=== PATIENT | female | born 1985 | race African-American/Black ===

== ENCOUNTER 2024-12-23 16:34 | Emergency (ER) | payer SELFPAY ==
--- NOTE | 2024-12-23 17:42 | EDPHYS ---
Physician Documentation [facility] Name: Amadeo Mar Age: 39 yrs Sex: Female : 1985 Arrival Date: 12/23/2024 Time: 16:34 Bed 7 Private MD: ED Physician Amador Broderick HPI: 12/23 17:38 This 39 yrs old Black Female presents to ER via EMS with complaints of seizure like jj9 activity and head pain. 17:38 39-year-old female comes to the emergency department for evaluation. The patient jj9 reports she had a seizure-like activity while being arrested by police radio dispatcher. She was stopped but she was driving apparently erratically. She endorses using drugs and alcohol recently. She denies any problems and does not want any workup and it feels ready to go.. 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 Patient states that history is in her chart previously and that she has numerous issues and it would be difficult to tell . - Infectious Disease History:: Denies. CDIFF, C. Auris, ESBL, MRSA (w/in 1 year), VRE (w/in 1 year), TB, . - Social history:: Patient uses alcohol, Smoking status: Patient reports the use of cigarette tobacco products, unknown amount. ROS: 17:38 Constitutional: Negative for fever, chills, and weight loss, Eyes: Negative for injury, jj9 pain, redness, and discharge, ENT: Negative for injury, pain, and discharge, Neck: Negative for injury, pain, and swelling, Cardiovascular: Negative for chest pain, palpitations, and edema, Respiratory: Negative for shortness of breath, cough, wheezing, and pleuritic chest pain, Abdomen/GI: Negative for abdominal pain, nausea, vomiting, diarrhea, and constipation, Back: Negative for injury and pain, : Negative for injury, bleeding, discharge, and swelling, MS/Extremity: Negative for injury and deformity, Skin: Negative for injury, rash, and discoloration, Neuro: Negative for headache, weakness, numbness, tingling, and seizure, Psych: Negative for depression, anxiety, suicide ideation, homicidal ideation, and hallucinations, Allergy/Immunology: Negative for hives, rash, and allergies, Endocrine: Negative for neck swelling, polydipsia, polyuria, polyphagia, and marked weight changes, Hematologic/Lymphatic: Negative for swollen nodes, abnormal bleeding, and unusual bruising, Exam: 17:39 Constitutional: This is a well developed, well nourished patient who is awake, alert, jj9 and in no acute distress. Head/Face: Normocephalic, atraumatic. Eyes: Pupils equal round and reactive to light, extra-ocular motions intact. Lids and lashes normal. Conjunctiva and sclera are non-icteric and not injected. Cornea within normal limits. Periorbital areas with no swelling, redness, or edema. ENT: Nares patent. No nasal discharge, no septal abnormalities noted. Tympanic membranes are normal and external auditory canals are clear. Oropharynx with no redness, swelling, or masses, exudates, or evidence of obstruction, uvula midline. Mucous membranes moist. Neck: Trachea midline, no thyromegaly or masses palpated, and no cervical lymphadenopathy. Supple, full range of motion without nuchal rigidity, or vertebral point tenderness. No Meningismus. Chest/axilla: Normal chest wall appearance and motion. Nontender with no deformity. No lesions are appreciated. Cardiovascular: Regular rate and rhythm with a normal S1 and S2. No gallops, murmurs, or rubs. Normal PMI, no JVD. No pulse deficits. Respiratory: Lungs have equal breath sounds bilaterally, clear to auscultation and percussion. No rales, rhonchi or wheezes noted. No increased work of breathing, no retractions or nasal flaring. Abdomen/GI: Soft, non-tender, with normal bowel sounds. No distension or tympany. No guarding or rebound. No evidence of tenderness throughout. Back: No spinal tenderness. No costovertebral tenderness. Full range of motion. Skin: Warm, dry with normal turgor. Normal color with no rashes, no lesions, and no evidence of cellulitis. MS/ Extremity: Pulses equal, no cyanosis. Neurovascular intact. Full, normal range of motion. Neuro: Awake and alert, GCS 15, oriented to person, place, time, and situation. Cranial nerves II-XII grossly intact. Motor strength 5/5 in all extremities. Sensory grossly intact. Cerebellar exam normal. Normal gait. Psych: Awake, alert, with orientation to person, place and time. Behavior, mood, and affect are within normal limits. Vital Signs: 16:43 BP 134 / 84; Pulse 84; Resp 18; Pulse Ox 100% ; Pain 0/10; jp4 16:43 Pain Scale: Adult jp4 16:43 states that she is more sore and upset than in pain jp4 MDM: 16:43 Medical Screening Exam initiated jj9 17:39 Differential diagnosis: drug overdose, seizure, Electrolyte abnormalities, renal jj9 failure, etc.. 17:39 Refusal of service: The patient/guardian displays adequate decision making capability jj9 and despite a detailed discussion of alternatives, benefits, risks, and consequences refuses: all lab tests, all X-rays. ED course: The patient appears in no distress she remains hemodynamically stable. She refuses any further workup and feels ready to leave. 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 The patient will be discharged advised to follow-up with her PCP and return to the ED if worsening of symptoms.. 17:42 Data reviewed: vital signs, nurses notes. jj9 Administered Medications: No medications were administered Disposition: 17:41 Co-signature as Attending Physician, Amador Broderick MD. jj9 Disposition Summary: 12/23/24 17:41 Discharge Ordered Notes: Location: Home j9 Condition: Stable jj9 Problem: new jj9 Diagnosis - Other seizures jj9 Followup: jj9 - With: Private Physician - When: As needed - Reason: Discharge Instructions: - Discharge Summary Sheet jj9 - Seizure, Adult jj9 Forms: - Medication Reconciliation Form jj9 - Antibiotic Education jj9 - Prescription Opioid Use jj9 - Patient Portal Instructions jj9 - Leadership Thank You Letter jj9 Signatures: Jac Goldstein, RN RN Vaelrio Sawyer RN RN [email or web address] Amador Broderick MD MD jj9
--- NOTE | 2024-12-23 17:42 | ER ---
Nurse's Notes [facility] Name: Amadeo Mar Age: 39 yrs Sex: Female : 1985 Arrival Date: 12/23/2024 Time: 16:34 Bed 7 Private MD: Diagnosis: Other seizures Presentation: 12/23 16:43 Chief complaint: EMS states: Patient was detained by PD, and jerking like motions were jp4 noted in limbs. Patient states that she hit her head while being maneuvered by PD. 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 Coronavirus screen: Vaccine status: Patient reports having had a previously documented Covid positive illness. unknown At this time, the client does not indicate any symptoms associated with coronavirus-19. Ebola Screen: Patient negative for fever greater than or equal to 101.5 degrees Fahrenheit, and additional compatible Ebola Virus Disease symptoms Patient denies exposure to infectious person. Patient denies travel to an Ebola-affected area in the 21 days before illness onset. No symptoms or risks identified at this time. Initial Sepsis Screen: Does the patient meet any 2 criteria? No. Patient's initial sepsis screen is negative. Does the patient have a suspected source of infection? No. Patient's initial sepsis screen is negative. Risk Assessment: Do you want to hurt yourself or someone else? Patient reports no desire to harm self or others. 16:43 Method Of Arrival: EMS: [facility] 4 16:43 Acuity: KLAUS 4 jp4 17:34 Onset of symptoms is unknown. bp Triage Assessment: 16:47 General: Appears distressed, well developed, Behavior is flat, restless, patient upset jp4 due to events that happened [employer] WORKER HELPER with PD. Pain: Denies pain. Neuro: No deficits noted. Respiratory: No deficits noted. Airway is patent Trachea midline Respiratory effort is even, unlabored, Respiratory pattern is regular, symmetrical. Musculoskeletal: No deficits noted. CSO: 17:34 LMP N/A - Irregular menses, Not bp Historical: - Home Meds: 16:47 None [Active]; jp4 - PMHx: 16:46 drug abuse; Seizure; jp4 - PSHx: 16:47 Unable to Obtain; jp4 - Immunization history:: unknown. Patient states that history is in her chart previously and that she has numerous issues and it would be difficult to tell . - Infectious Disease History:: Denies. CDIFF, C. Auris, ESBL, MRSA (w/in 1 year), VRE (w/in 1 year), TB, . - Social history:: Patient uses alcohol, Smoking status: Patient reports the use of cigarette tobacco products, unknown amount. Screenin:49 Clinical [place] Withdrawal Assessment for Alcohol, revised (CIWA-Ar): jp4 Nausea/Vomitin - No nausea or vomiting Headache: 0 - Not present Paroxysmal Sweats: 0 - No sweats visible Anxiety: 0 - No anxiety, at ease Agitation: 0 - Normal actiivty Tremor: 0 - No tremor Auditory Disturbances: 0 - Not present Visual Disturbances: 0 - Not present Tactile Disturbances: 0 - None Orientation and Clouding of Sensorium: 0 - Oriented and can do serial additions Total Score: < [address] [facility] ED Fall Risk Assessment (Adult) History of falling in the last 3 months, including since admission No falls in past 3 months (0 pts) Confusion or Disorientation No (0 pts) Intoxicated or Sedated No (0 pts) Impaired Gait No (0 pts) Mobility Assist Device Used No (0 pt) Altered Elimination No (0 pt) Score/Fall Risk Level 0 - 2 = Low Risk. Abuse screen: Denies threats or abuse. Denies injuries from another. Nutritional screening: No deficits noted. Tuberculosis screening: No symptoms or risk factors identified. Assessment: 16:49 General: Patient is awake and alert, following commands. Talking on phone when jp4 attempting to get patient history. 16:51 Reassessment: PT DECLINING TREATMENT. bp 17:31 Reassessment: ERP AT B/S FOR PT EVAL. COMPLICATED BY PT PHONE USE. PT CONTINUES TO bp REFUSED TREATMENT AND ASKING STAFF TO GIVE HER A RIDE BACK TO FILION. PT AOx4, AMBULATORY WITH STEADY GAIT. NO SZ LIKE ACTIVITY, TRAUMA OR INJURIES NOTED. Vital Signs: 16:43 BP 134 / 84; Pulse 84; Resp 18; Pulse Ox 100% ; Pain 0/10; jp4 16:43 Pain Scale: Adult jp4 16:43 states that she is more sore and upset than in pain jp4 ED Course: 16:43 Patient arrived in ED. jp4 16:43 Amador Broderick MD is Attending Physician. jj9 16:43 Jac Goldstein, RN is Primary Nurse. bp 16:46 Triage completed. jp4 16:47 Patient placed in an exam room. jp4 16:49 Awaiting ED provider evaluation. jp4 16:49 Patient has correct armband on for positive identification. Bed in low position. Call jp4 light in reach. Side rails up X 1. Provided Education on:. Door closed. 17:32 No provider procedures requiring assistance completed. Patient did not have IV access bp during this emergency room visit. Administered Medications: No medications were administered Medication: 17:33 VIS not applicable for this client. bp Outcome: 17:32 Discharged to home ambulatory, bp 17:32 Condition: stable 17:32 Discharge instructions given to patient, Instructed on discharge instructions, 17:41 Discharge ordered by jj9 17:43 Patient left the ED. bp Signatures: Jac Goldstein, RN RN Valerio Sawyer, RN RN jp4 Amador Broderick, MD EVANGELISTA jj9
[2024-12-23 23:00] VITALS: BP 134/84; O2SAT 100
== END 2024-12-23 17:43 | disposition home or self-care (01) ==
LOC: ER 16:34
DX: G40.89 Other seizures (principal)
CPT/HCPCS: 99283